=== PATIENT | female | born 1975 | race Caucasian/White ===

== ENCOUNTER → 2018-10-16 | Outpatient (CLI) | payer OTHER ==
[~2018-10-16] MED LIST: ASPI-621 PO; CYCL10TA2 PO; GABA300C18 PO; MULT-208 PO; NAPR-514 PO
--- NOTE | 2018-10-16 15:38 | KCIC ---
Bilateral digital screening mammograms: Reason for examination: Routine screening. Comparison is made to previous studies dated 11/12/2014 and 10/29/2014. Interpretation was made with the benefit of CAD. The skin and nipples show no abnormalities. No abnormal axillary lymph nodes are seen. The breast parenchyma is heterogeneously dense. (Breast density: Category C.) There continue to be small nodular parenchymal densities bilaterally which have not changed. There are no new dominant masses, suspicious calcifications or architectural distortion. Impression: No evidence of malignancy. Recommend routine screening. Your patient's mammogram demonstrates that she has dense breast tissue (breast density category C or D), which could hide abnormalities, and if she has other risk factors for breast cancer that have been identified, she might benefit from supplemental screening tests that may be suggested by you as her ordering physician. Dense breast tissue, in and of itself, is a relatively common condition. Therefore, this information is not provided to cause undue concern, but rather to raise your awareness and to promote discussion with your patient regarding the presence of other risk factors, in addition to dense breast tissue. Your patient's mammography results will be sent to her. BI-RAD Category 2: Benign. "Our facility is accredited by the [employer] Mammography Program." This patient's information has been entered into a reminder system for the patient to be notified with the results of her examination and a target date for the next mammogram. Electronically signed by: Hemalatha Collado MD (10/16/2018 3:35 PM) [id number]
== END | disposition home or self-care (01) ==
LOC: KCIC MAMMO 14:45
PROVIDERS: ATTEND Family Medicine
DX: Z12.31 Encounter for screening mammogram for malignant neoplasm of breast (principal)
CPT/HCPCS: 77067

== ENCOUNTER → 2018-10-22 | Outpatient (CLI) | payer OTHER ==
--- NOTE | 2018-10-26 15:13 | EKG ---
[facility] [address] [place] [address] Test Date: 2018-10-22 Test Time: 13:43:00 Pat Name: SAMANTA CHAVEZ Department: Room: Gender: Manager Fitness: : 1975 Requested By: RADHA DALLAS Order Number: [id number] Reading MD: Pedrito Jones Interpretive Statements Pwas predominantly in normal sinus rhythm with heart rate ranging from 76 bpm to 150 bpm with an average of 112 bpm. Very few premature supraventricular and ventricular ectopic beats noted. No significant arrhythmias were seen. Patient reported symptoms of palpitations and dizziness in her diary that did not correlate with any significant arrhythmias. CONCLUSIONS Holter monitor did not show any significant arrhythmias. Electronically Signed On 10-30-2018 9:44:42 [employer] by Pedrito Jones
== END | disposition home or self-care (01) ==
LOC: EKG 13:08
PROVIDERS: ATTEND Family Medicine
DX: I49.3 Ventricular premature depolarization (principal); R00.2 Palpitations
CPT/HCPCS: 93225; 93226

== ENCOUNTER → 2020-05-12 | Outpatient (CLI) | payer OTHER ==
--- NOTE | 2020-05-12 13:49 | RAD ---
KNEE RIGHT 3V DATE: 05/12/2020 12:00 AM INDICATION: Reason: PAIN,SWELLING / Spl. Instructions: / History: COMPARISON: None. FINDINGS: Bones: There is no evidence of acute fracture or dislocation. Joints: The joint spaces are normal. There is no joint effusion. Miscellaneous: None. IMPRESSION: No acute osseous abnormality. Electronically signed by: Jc Villafana MD (05/12/2020 1:46 PM) [id number]
== END | disposition home or self-care (01) ==
LOC: RAD 09:56
PROVIDERS: ATTEND Family Medicine
DX: M25.461 Effusion, right knee (principal)
CPT/HCPCS: 73562

== ENCOUNTER → 2020-05-20 | Outpatient (CLI) | payer OTHER ==
--- NOTE | 2020-05-20 11:39 | RAD ---
Examination: MRI of the right knee was performed without contrast COMPARISON: None available HISTORY: History of right knee pain TECHNIQUE: Multiplanar multisequence MR imaging of the right knee was performed without contrast. FINDINGS: The anterior cruciate ligament, posterior cruciate ligament appear intact. There is 1.7 cm multiloculated cystic structure identified arising from the proximal portion of the anterior cruciate ligament likely ganglion cyst. The medial meniscus, lateral meniscus appear intact. The medial collateral ligament appears intact. The lateral collateral ligamentous complex including the fibular collateral ligament ,biceps femoris tendon, popliteus tendon appears intact. The medial retinaculum, lateral retinaculum appears intact. There is deep fissuring of cartilage identified in the right lateral femoral compartment and in the medial femoral condyle anteriorly with small subchondral cystic changes. Small knee joint effusion. The extensor mechanism appears intact. Mild degenerative changes identified in the medial, lateral, patellofemoral compartments. IMPRESSION: 1. Grade II chondromalacia patellofemoral compartment and in the anterior aspect of the medial compartment with subchondral cystic lesions likely degenerative changes. 2. Small knee joint effusion. 3. 1.7 cm ganglion cyst arising from the proximal portion of the anterior cruciate ligament. Electronically signed by: Yvan Salazar MD (05/20/2020 11:36 AM) [id number]
== END | disposition home or self-care (01) ==
LOC: MRI 08:44
PROVIDERS: ATTEND Family Medicine
DX: M22.41 Chondromalacia patellae, right knee (principal); M25.461 Effusion, right knee; M67.461 Ganglion, right knee
CPT/HCPCS: 73721

== ENCOUNTER → 2020-09-21 | Outpatient (CLI) | payer OTHER ==
--- NOTE | 2020-09-22 15:44 | RAD ---
DATE: 09/21/2020 3:10 PM EXAM: MAMMO IONA SCREENING BILATERAL HISTORY: Screening COMPARISON: 10/16/2018, 10/29/2014 Bilateral CC and MLO views of the breasts were performed. Bilateral breast tomosynthesis was performed in CC and MLO projections. This study was interpreted with the benefit of Computerized Aided Detection (CAD). FINDINGS: Breast Density: HETERO The breast parenchyma Is heterogeneously dense, which could reduce sensitivity of mammography. Breast parenchyma level C Waxing and waning pattern of nodularity compatible with benign cystic change. No suspicious masses, microcalcifications or architectural distortion is present to suggest malignancy in either breast. The visualized axillae are unremarkable. IMPRESSION: No mammographic evidence of malignancy. BI-RADS CATEGORY: 2 BENIGN FINDING(S) RECOMMENDED FOLLOW-UP: 12M 12 MONTH FOLLOW-UP Annual screening mammography is recommended, unless clinically indicated sooner based on symptoms or change in physical exam. PQRS compliance statement: Patient information was entered into a reminder system with a target due date for the next mammogram. Mammography is a sensitive method for finding small breast cancers, but it does not detect them all and is not a substitute for careful clinical examination. A negative mammogram does not negate a clinically suspicious finding and should not result in delay in biopsying a clinically suspicious abnormality. "Our facility is accredited by the [employer] Mammography Program."
== END ==
LOC: MAMMO 14:55
PROVIDERS: ATTEND Family Medicine
DX: Z12.31 Encounter for screening mammogram for malignant neoplasm of breast (principal)
CPT/HCPCS: 77063; 77067

== ENCOUNTER 2020-09-25 15:34 | Inpatient (IN) | payer OTHER ==
[~2020-09-25] VITALS: Ht 157.5 cm; Wt 75.6 kg
--- NOTE | 2020-09-25 16:29 | PHYS DOC ---
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 She states she still feels this. She states she is had this before but a long time ago. States she was never diagnosed with any diagnosis. She takes no blood thinners. Patient's history is chronic back pain and she is a smoker. Patient denies chest pain, shortness of air, numbness, focal weakness, vision changes, headache, lightheadedness, dizziness, abdominal pain, nausea, vomiting, diarrhea, fever, cough. Review of Systems: Review of Systems: Constitutional: Denies fever or chills. [] Eyes: Denies change in visual acuity. [] HENT: Denies nasal congestion or sore throat. [] Respiratory: Denies cough or shortness of breath. [] Cardiovascular: Denies chest pain or edema. [] GI: Denies abdominal pain, nausea, vomiting, bloody stools or diarrhea. [] : Denies dysuria. [] Musculoskeletal: Denies back pain or joint pain. [] Integument: Denies rash. [] Neurologic: Denies headache, focal weakness. +Bilateral facial cheeks, arms and legs tingling sensory changes. [] Endocrine: Denies polyuria or polydipsia. [] Lymphatic: Denies swollen glands. [] Psychiatric: Denies depression or anxiety. [] Heart Score: Risk Factors: Risk Factors: DM, Current or recent (<one month) smoker, HTN, HLP, family history of CAD, obesity. Risk Scores: Score 0 - 3: 2.5% MACE over next 6 weeks - Discharge Home Score 4 - 6: 20.3% MACE over next 6 weeks - Admit for Clinical Observation Score 7 - 10: 72.7% MACE over next 6 weeks - Early Invasive Strategies Allergies: Allergies: Allergies Coded Allergies Type Severity Reaction Last Updated Verified No Known Drug Allergies 01/29/15 No Physical Exam: PE: Constitutional: Well developed, well nourished, no acute distress, non-toxic appearance. [] HENT: Normocephalic, atraumatic, bilateral external ears normal, oropharynx moist, no oral exudates, nose normal. [] Eyes: PERRLA, EOMI, conjunctiva normal, no discharge. [] Neck: Normal range of motion, no tenderness, supple, no stridor. [] Cardiovascular:Heart rate regular rhythm, no murmur [] Lungs & Thorax: Bilateral breath sounds clear to auscultation [] Abdomen: Bowel sounds normal, soft, no tenderness, no masses, no pulsatile masses. [] Skin: Warm, dry, no erythema, no rash. [] Back: No tenderness, no CVA tenderness. [] Extremities: No tenderness, no cyanosis, no clubbing, ROM intact, no edema. [] Neurologic: Alert and oriented X 3, normal motor function, sensory function tingling in bilateral lower legs, arms and facial cheeks, no focal deficits note d. [] Psychologic: Affect normal, judgement normal, mood normal. [] Current Patient Data: Vital Signs: Vital Signs Date Time Temp Pulse Resp B/P (MAP) Pulse Ox O2 Delivery O2 Flow Rate FiO2 09/25/20 16:13 98.3 110 158/90 (112) 98 98.3 09/25/20 15:45 20 EKG: EK and read by Dr. Henry as sinus tach and no STEMI Radiology/Procedures: Radiology/Procedures: [] Impression: [facility] [address] [place], [place] [id number] IMAGING REPORT Signed PATIENT: SAMANTA CHAVEZ LACCOUNT: [id number] : 1975 LOCATION: ER AGE: 45 SEX: F EXAM STATUS: REG ER ORD. PHYSICIAN: PASHA PUENTES APRN REASON: numbness, tingling PROCEDURE: CT HEAD WO CONTRAST Exam: CT head INDICATION: Numbness and tingling TECHNIQUE: Sequential axial images through the head were obtained without the administration of IV contrast. Comparisons: None FINDINGS: No focal parenchymal lesion or hemorrhage is identified. There is no midline shift or sulcal effacement. No acute vascular territory infarction is identified. Parisi-white distinction is preserved. The ventricular system is within normal limits without compression hydrocephalus. The basal cisterns are well maintained. The visualized portions of the paranasal sinuses and mastoid air cells are well-pneumatized. No acute fractures. IMPRESSION: No acute intracranial abnormality. Exposure: One or more of the following in the visualized dose reduction techniques were utilized for this examination: 1. Automated exposure control 2. Adjustment of the MA and/or KV according to patient size Use of iterative of reconstructive technique Electronically signed by: Damon Quinn MD (09/25/2020 5:41 PM) [facility] DICTATED and SIGNED BY: DAMON QUINN MD DATE: 09/25/201740 Course & Med Decision Making: Course & Med Decision Making Pertinent Labs and Imaging studies reviewed. (See chart for details) See HPI. Patient denies any pain. Speaks in full complete sentences. Alert and oriented x4. Ambulatory with a steady gait. NIH is 1 due to slight sensation changes in her bilateral legs and arms. CT head shows no acute findings. Blood work is unremarkable. Upon reexamination the patient she is still having tingling in the face. She is calm and sitting in bed watching TV talking to her family member. I have spoken to Dr. Lau who states that patient can be admitted to the hospital and neurology, see her in the morning. Patient agrees to stay. Patient is admitted to Dr Lau. [] Uma Disclaimer: Uma Disclaimer: This electronic medical record was generated, in whole or in part, using a voice recognition dictation system. NIHSS Stroke Scale NIH Stroke Scale: NIH Stroke Scale Response (Comments) Value Level of Consciousness: 0 Alert/Responsive 0 LOC Questions: 0 Answers both correctly 0 LOC Commands: 0 Performs both tasks 0 Best Gaze: 0 Normal 0 Visual: 0 No visual loss 0 Facial Palsy: 0 Normal, symmetrical 0 Motor - Left Arm 0 No drift 0 Motor - Right Arm 0 No drift 0 Motor - Left Leg 0 No drift 0 Motor: Right Leg 0 No drift 0 Limb Ataxia: 0 Absent 0 Sensory: 1 Mid to moderate loss 1 Best Language: 0 Normal 0 Dysathria: 0 Normal 0 Extinction and Inattention: 0 Normal 0 Total 1 Departure Departure Impression: Primary Impression: Numbness and tingling Disposition: 01 DC HOME SELF CARE/HOMELESS Admitting Physician: Radha Lau Condition: STABLE Referrals: RADHA LAU MD (PCP) PASHA PUENTES CHANGE CONTROL MANAGER Sep 25, 2020 16:29
[2020-09-25 17:17] LABS: BASO # 0.2 x10^3/uL (0.0-0.2); BASO % 1 % (0-3); EOS # 0.3 x10^3/uL (0.0-0.7); EOS % 2 % (0-3); HEMATOCRIT 39.8 % (36.0-47.0); HEMOGLOBIN 13.4 g/dL (12.0-15.5); LYMPH # 3.1 x10^3/uL (1.0-4.8); LYMPH % 23 % (24-48); MEAN CORPUSCULAR HEMOGLOBIN 31 pg (25-35); MEAN CORPUSCULAR HGB CONC 34 g/dL (31-37); MEAN CORPUSCULAR VOLUME 92 fL (79-100); MONO # 0.8 x10^3/uL (0.0-1.1); MONO % 6 % (0-9); NEUT # 9.3 x10^3/uL (1.8-7.7); NEUT % 68 % (31-73); PLATELET COUNT 397 x10^3/uL (140-400); RED BLOOD COUNT 4.33 x10^6/uL (3.50-5.40); RED CELL DISTRIBUTION WIDTH 13.8 % (11.5-14.5); WHITE BLOOD COUNT 13.6 x10^3/uL (4.0-11.0)
[2020-09-25 17:25] LABS: CALCIUM 9.2 mg/dL (8.5-10.1); CREATININE 0.8 mg/dL (0.6-1.0); GFR 76.9; POTASSIUM 3.5 mmol/L (3.5-5.1)
[2020-09-25 17:26] LABS: PROTHROMBIN TIME PATIENT 13.2 SEC (11.7-14.0)
[2020-09-25 17:31] LABS: ALBUMIN 3.7 g/dL (3.4-5.0); ALBUMIN/GLOBULIN RATIO 1.1 (1.0-1.7); MAGNESIUM 2.3 mg/dL (1.8-2.4); TOTAL BILIRUBIN 0.2 mg/dL (0.2-1.0); TOTAL PROTEIN 7.1 g/dL (6.4-8.2)
--- NOTE | 2020-09-25 17:44 | RAD ---
Exam: CT head INDICATION: Numbness and tingling TECHNIQUE: Sequential axial images through the head were obtained without the administration of IV contrast. Comparisons: None FINDINGS: No focal parenchymal lesion or hemorrhage is identified. There is no midline shift or sulcal effacement. No acute vascular territory infarction is identified. Parisi-white distinction is preserved. The ventricular system is within normal limits without compression hydrocephalus. The basal cisterns are well maintained. The visualized portions of the paranasal sinuses and mastoid air cells are well-pneumatized. No acute fractures. IMPRESSION: No acute intracranial abnormality. Exposure: One or more of the following in the visualized dose reduction techniques were utilized for this examination: 1. Automated exposure control 2. Adjustment of the MA and/or KV according to patient size Use of iterative of reconstructive technique Electronically signed by: Damon Bey MD (09/25/2020 5:41 PM) [facility]ING
[2020-09-25 17:56] LABS: BILIRUBIN,URINE NEGATIVE (NEG); CLARITY,URINE CLEAR; COLOR,URINE YELLOW; NITRITE,URINE NEGATIVE (NEG); PH,URINE 5.5 (<5.0-8.0); PROTEIN,URINE NEGATIVE (NEG-TRACE)
[2020-09-25 18:02] LABS: BARBITURATES NEG (NEG); BENZODIAZEPINES NEG (NEG); CANNABINOIDS NEG (NEG); COCAINE NEG (NEG); METHADONE NEG (NEG); OPIATES NEG (NEG); PHENCYCLIDINE NEG (NEG)
[2020-09-25 18:04] LABS: RBC,URINE 0 /HPF (0-2)
[2020-09-25 18:05] LABS: BACTERIA,URINE MODERATE /HPF (0-FEW)
[2020-09-25 18:07] LABS: AMPHETAMINE/METHAMPHETAMINE NEG (NEG)
[2020-09-25 21:00] VITALS: BP 149/87
--- NOTE | 2020-09-25 22:30 | NUR ---
ADMISSION NOTE Pt admitted to room 517 via ER cart at 2100. Pt is A/Ox4, denies pain. Pt placed on tele monitor, discussed POC. At 2230, admission assessment and history and home med list completed. Pt reports that earlier today, she got dizzy, and started to have a numbness/tingling sensation go throughout her whole body, from top to bottom. Currently pt reports only having numbness/tingling sensation around the mouth, but denies any widespread symptoms or weakness at this time. Pt requests nicotine patch. Pt denies any further needs. Will monitor.
[2020-09-25] MEDS ORDERED: DICL75TA PO (22:39)
[2020-09-25] MEDS ORDERED: FAMO-63 PO (22:39)
[2020-09-25] MEDS ORDERED: ASCO500C PO (22:39)
[2020-09-25] MEDS ORDERED: MULT-735 PO (22:39)
[2020-09-25 23:00] VITALS: BP 134/76
[2020-09-25] MEDS ORDERED: NICOTINE 21MG PATCH. TD PRN (23:00)
[2020-09-26] MEDS ORDERED: FEXO180T81 PO (05:36)
[2020-09-26 07:00] VITALS: BP 123/75
--- NOTE | 2020-09-26 07:40 | PDOC1 ---
H & P. DATE OF SERVICE: DATE: 09/26/20 TIME: 07:37 HPI: Ms Aldrich is a 45 yo female with nicotine dependence, who presented to the ED after sudden onset of parasthesias in b/l cheeks, arms and legs that started as she was working in [employer], just walking down the hallway. She felt somewhat lightheaded and had mild vertigo. She reported feeling well immediately prior to the event. She denies history of migraines. She denies headache at the time. She notes that symptoms resolved within 1 hour. She reports that she has had lightheadedness and episodic vertigo in the past, but not for a while. Labs were remarkable only for mildly elevated WBCs without left shift. CT head was normal. EKG was normal. She was admitted for observation and consult with Neurology this AM. ROS: Constitutional: Denies fever, fatigue, chills HEENT: Denies sore throat, vision changes Cardio: Denies chest pain, dyspnea with exertion, syncope, palpitations, edema Pulmonary: Denies shortness of breath, cough, wheezing GI: Denies nausea, vomiting, diarrhea, constipation : Denies dysuria, frequency, urgency, incontinence Skin: Denies new lesions Neuro: Denies weakness; admits mild paresthesias intermittently in the cheeks b/l PMH: As above FAMILY HX: Mother had a stroke. SOCIAL HX: 1ppd smoker for many years, started smoking at age 10. Denies recreational drug use. Admits drinking about 10 drinks at a time approximately once a week or less. SURGICAL HX: LEEP, R wrist surgery MEDS: Reviewed and reconciled ALLERGIES: Reviewed PE: Alert, oriented, no acute distress EOMI, sclera non-icteric Neck supple, no carotid bruit RRR, no murmur CTAB, no wheezes, crackles or rhonchi No edema, cyanosis. Normal capillary refill. CN II-XII grossly intact, nonfocal Calm, cooperative, mood/affect within normal limits ASSESSMENT & PLAN: Parasthesias, lightheadedness, vertigo, nearly all resolved Nicotine dependence Alcohol misuse Neurology consulted for input Uncertain etiology at this point, could be atypical migraine but no headache at this time. I have low suspicion for TIA given distribution of symptoms Strongly recommended smoking cessation, she has tried multiple options including Chantix. May look into hypnosis. Get lipid panel, TSH Likely dc home later today with outpt follow up Justifications for Admission Other Justification TRUSTY,FELIZ Cheung MD Sep 26, 2020 07:40
[2020-09-26] MEDS ORDERED: FAMOTIDINE 20 MG TABLET. PO PRN (07:45)
[2020-09-26] MEDS ORDERED: DICLOFENAC SODIUM 25 MG TABLET.DR PO SCH (09:00)
[2020-09-26] MEDS ORDERED: CETIRIZINE HCL 10 MG TABLET. PO SCH (09:00)
[2020-09-26] MEDS ORDERED: Nicotine 21MG TD (09:03)
[2020-09-26 11:19] VITALS: BP 129/86
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
--- NOTE | 2020-09-27 14:04 | EKG ---
[facility] [address] [place] [address] Test Date: 2020-09-25 Test Time: 16:28:48 Pat Name: SAMANTA CHAVEZ Department: Room: Gender: F Performance Improvement Manager: : 1975 Requested By: PASHA PUENTES Order Number: [id number] Reading MD: Measurements Intervals [place] Rate: 104 P: 34 NE: 128 QRS: 67 QRSD: 88 T: 24 QT: 352 QTc: 469 Interpretive Statements SINUS TACHYCARDIA OTHERWISE NORMAL ECG RI6.02 No previous ECG available for comparison
== END 2020-09-26 13:00 | disposition home or self-care (01) | DRG 149 ==
LOC: ER 15:34 → 5 NORTH 19:08
PROVIDERS: ADMIT Family Medicine; ATTEND Family Medicine
DX: R42 Dizziness and giddiness (principal); F17.210 Nicotine dependence, cigarettes, uncomplicated; Z82.3 Family history of stroke; I65.1 Occlusion and stenosis of basilar artery; G89.29 Other chronic pain; F17.200 Nicotine dependence, unspecified, uncomplicated
CPT/HCPCS: 36415; 70450; 80053; 80307; 81001; 83690; 83735; 84443; 84484; 85025; 85610; 87086; 93005; G0480; G0378

== ENCOUNTER → 2021-09-22 | Outpatient (CLI) | payer OTHER ==
[~2021-09-22] MED LIST changes: +ASCO500C PO; +CYCL10TA19 PO; -CYCL10TA2 PO; +DICL75TA PO; +FAMO-63 PO; +FEXO180T81 PO; +MULT-735 PO; +Nicotine 21MG TD
--- NOTE | 2021-09-22 08:54 | RAD ---
INDICATION : Routine Screening. COMPARISON: Multiple priors including September 2020 TECHNIQUE: Standard mammogram screening views of the bilateral breasts were obtained with 3D tomosynt hesis. CAD was utilized. FINDINGS: The breasts are heterogenous density. Within the right medial breast centrally approximately 5-6 cm from the nipple there is a partially obscured mass suspected which may be a new finding. There is als o multiple additional partially obscured mass is seen within the left greater than right breast. Some of these appear new or more prominent than on prior exams. On the left cc view this includes both me dially and laterally as well as within the central glandular tissue. These are predominantly within t he anterior aspect of the left breast. IMPRESSION: BI-RADS Category 0: Incomplete. Further imaging evaluation is warranted. There is bilateral partially obscured masses within the breasts with some of these appearing new and some more prominent than yury or. Recommend that the perforation return for diagnostic mammogram and ultrasound to further assess. The patient was placed into the recall system with a suggested recall date for follow up imaging. Mammography is the most sensitive method for finding small breast cancers, but it does not detect the m all and is not a substitute for careful clinical examination. A negative mammogram does not negate a clinically suspicious finding and should not result in delay in biopsying a clinically suspicious abnormality. Electronically signed by: Madhav Correa MD (09/22/2021 8:52 AM) [id number]
== END ==
LOC: MAMMO 09:25
PROVIDERS: ATTEND Family Medicine
DX: Z12.31 Encounter for screening mammogram for malignant neoplasm of breast (principal)
CPT/HCPCS: 77063; 77067

== ENCOUNTER → 2021-10-11 | Outpatient (CLI) | payer OTHER ==
--- NOTE | 2021-10-11 15:40 | RAD ---
EXAMINATION: US BREAST BILAT, MG DIAGNOSTIC BILAT CLINICAL HISTORY: Abnormal mammogram TECHNIQUE: Digital craniocaudal and mediolateral oblique spot compression views and true lateral view s of the bilateral breasts obtained. Targeted bilateral breast ultrasound also performed. COMPARISON: Mammograms dated 09/22/2021, 09/21/2020, and 10/16/2018; bilateral breast ultrasound 015 BREAST COMPOSITION: The breasts are heterogeneously dense, which may obscure small masses. FINDINGS: BILATERAL DIAGNOSTIC MAMMOGRAM: 8 mm asymmetry medial right breast posterior third, best visualized on cc view, corresponding to shanel on of interest on most recent mammogram. Multiple partially circumscribed masses throughout the left breast predominantly in the anterior to middle third. BILATERAL BREAST ULTRASOUND: RIGHT: At 10:00 4 cm from the nipple, 9 x 7 x 5 mm mass, previously 9 x 10 x 6 mm. At 12:00 4 cm from the nipple, 7 x 5 x 3 mm mass, previously 9 x 10 x 7 mm. LEFT: At 12:00 4 cm from the nipple, 1.9 x 2.2 x 0.8 cm cyst. At 1:00 3 cm from the nipple, clustered cysts with the largest cyst measuring up to 12 mm. At 2:00 4 cm from the nipple, 5 x 5 x 7 mm irregu lar mass with partially circumscribed margins, possibly clustered cysts or a complicated cyst with se ptation. At 6:00 3 cm from the nipple, 5 x 4 x 3 mm mass. At 8:00 2.5 cm from the nipple 9 x 9 x 6 mm mass, previously 8 x 7 x 6 mm. At 10:00 2.5 cm from the nipple, 4 x 2 x 3 mm mass, previously 5 x 5 x 3 mm. At 11:00 4 cm from the nipple, 7 x 5 x 4 mm mass versus lymph node. IMPRESSION: 1. Probably benign 7 mm mass left upper outer quadrant 2:00. 2. Probably benign asymmetry medial right breast without visualized sonographic correlate. 3. Probable fibrocystic changes right upper outer quadrant and medial left breast without significan t interval change from prior study. BI-RADS ASSESSMENT: Category 3: Probably Benign RECOMMENDATION: Follow-up bilateral diagnostic mammogram, targeted left breast ultrasound, and possible targeted righ t breast ultrasound if indicated in 3-6 months for further evaluation with attention on the mass at 2 :00 position in the left breast and asymmetry in the medial right breast. PQRS compliance statement - Patient information was entered into a reminder system with a target due date for the next mammogram. "Our facility is accredited by the [employer] Mammography Program." Electronically signed by: Manoj Louis DO (10/11/2021 3:38 PM) [id number]
== END ==
LOC: US 12:14
PROVIDERS: ATTEND Family Medicine
DX: N60.02 Solitary cyst of left breast (principal); R92.2 Inconclusive mammogram
CPT/HCPCS: 77066; 76641-50

== ENCOUNTER → 2021-11-10 | Outpatient (CLI) | payer OTHER ==
[2021-11-10 13:40] LABS: ALBUMIN 3.7 g/dL (3.4-5.0); ALBUMIN/GLOBULIN RATIO 1.1 (1.0-1.7); CALCIUM 8.5 mg/dL (8.5-10.1); CHOLESTEROL/HDL RATIO 3.7; CREATININE 0.8 mg/dL (0.6-1.0); GFR 76.6; TOTAL BILIRUBIN 0.4 mg/dL (0.2-1.0)
== END ==
LOC: SPEC 13:15
PROVIDERS: ATTEND Family Medicine
DX: E78.5 Hyperlipidemia, unspecified (principal)
CPT/HCPCS: 36415; 80053; 80061

== ENCOUNTER → 2022-01-06 | Outpatient (CLI) | payer OTHER ==
--- NOTE | 2022-01-06 16:46 | RAD ---
EXAMINATION: MG DIGITAL BILAT DIAGNOSTIC MAMMO WITH IONA, US BREAST BILAT History: Reason: 6 MONTH FOLLOW UP of bilateral breast masses. Comparison: Right breast bilateral diagnostic mammogram and bilateral breast ultrasound 10/11/2021 S creening mammogram 09/23/2021 and 09/21/2020.. Technique: Bilateral digital diagnostic mammogram views were obtained. CAD was utilized. 3-D tomosyn thesis images were acquired. Findings: Mammogram: Breast Tissue Density C : The breasts are heterogeneously dense, which may obscure small masses. An asymmetry at 12:00 middle depth in the left breast on CC view is less conspicuous. The asymmetry i n the medial right breast middle depth on CC view corresponding to 2:00 on tomosynthesis is unchanged . Multiple other bilateral circumscribed nodules are unchanged. There is no suspicious calcification or architectural distortion. Ultrasound: Right breast: Clustered microcysts or complicated cysts with internal debris or septations measuring 6 mm and 15 mm at 12:00 4 cm from nipple and 9:00 3 cm the nipple, respectively, are unchanged or decreased in size compared to 04/23/2015. These are more anechoic in and simple in appearance. There is an area of dens e tissue at 2:00 4.5 cm from the nipple but no mass or cyst in this area to correspond with mammograp hic findings. Left breast: 12:00 4 cm from the nipple: There is possible new ovoid circumscribed hypoechoic mass with internal s eptation or debris measuring 8 x 6 x 5 mm. 2:00 4 cm the nipple: 7 x 6 x 5 mm lobulated hypoechoic mass is unchanged in size and more anechoic i n appearance compared to 10/11/2021. This is likely a septated cyst or cluster of cysts. 10:00 2.5 cm the nipple: A 3 mm hypoechoic mass with indistinct margins is unchanged from 10/11/2021 but smaller compared to 04/23/2015. Additional clustered microcysts or minimally complicated cyst hoang uring 3 mm and 10 mm at 6:00 and 8:00 are unchanged in size and more anechoic in appearance. A 2 cm s imple cyst at 1:00 is unchanged. Mild ductal ectasia is seen bilaterally, unchanged. Normal left axillary lymph nodes. IMPRESSION: 1. Probably benign hypoechoic masses in the left breast at 2:00 and 12:00, likely complicated cyst or clustered microcysts. 2. Additional areas of fibrocystic change in both breasts are stable from 2015 and can be considered benign. 3. Stable 7 mm asymmetry in the medial right breast on mammogram without sonographic correlation. BI-RADS category 3: Probably benign. Recommendation: Bilateral diagnostic mammogram, left breast ultrasound, and possible right breast ult rasound in 6 months to evaluate the probably benign masses in the left breast at 2:00 and 12:00, and the 7 mm asymmetry in the medial right breast seen on mammogram. The images were reviewed with computer aided detection. Patient information is entered into the reminder system with a target due date for the next screening mammogram. Mammography is the most sensitive method for finding small breast cancers, but it does not detect the m all and is not a substitute for careful clinical examination. A negative mammogram does not negate a clinically suspicious finding and should not result in delay in biopsying a clinically suspicious a bnormality. "Our facility is accredited by the [employer] Mammography Program." Electronically signed by: Shelley Baird MD (01/06/2022 4:43 PM) [id number]
== END ==
LOC: MAMMO 09:49
PROVIDERS: ATTEND Family Medicine
DX: N60.02 Solitary cyst of left breast (principal); N60.42 Mammary duct ectasia of left breast
CPT/HCPCS: 76641; 77066; G0279; 77062

== ENCOUNTER → 2022-02-07 | Outpatient (CLI) | payer OTHER ==
[~2022-02-07] MED LIST changes: +REGADENOSON 0.4 MG/5 ML DISP.SYRIN. IV ONE
--- NOTE | 2022-02-07 17:38 | RAD ---
MR#: [id number] Date of Study: 02/07/2022 Ordering Physician: MANNY TORRES, Referring Physician: CHERELLE JAIME Tech: SANTOSH Mejia, LIZET (R) (N) APPROVED REPORT Test Type: Pharmacological Stress Nurse/Tech: Janie Power R.N. Test Indications: chest pain Cardiac History: smoker Medications: See Electronic Medical Record Medical History: See Electronic Medical Record Resting ECG: SR w/ BBB Resting Heart Rate: 78 bpm Resting Blood Pressure: 119/73mmHg Pretest Chest Pain: no Nurse/Tech Notes S1S2, lungs CTA Consent: The procedure was explained to the patient in lay terms. Informed consent was witnessed. Kvng eout was entered into [employer]. History and Stress Test performed by OLIVA Neri Pharm. Details Pharmacologic stress testing was performed using 0.4mg per 5ml of regadenoson given intravenously ove r 7-10 seconds. Stress Symptoms SOA POST EXERCISE Reason for Termination: Infusion complete Max HR: 120 bpm Max Blood Pressure: 137/75mmHg Blood Pressure response to exercise: Normal blood pressure response during stress. Heart Rate response to exercise: wnl Chest Pain: No. Arrhythmia: No. ST Change: No. INTERPRETATION Stress EKG Conclusion: No evidence of stress induced EKG changes. Imaging Protocol IMAGE PROTOCOL: Rest Tc-99m/stress Tc-99m 1 day Rest: Stress: Viability: Radiopharm.Tc99m [id number] Sestamibi Dose10.3mCi 32.5mCi Img Date 02/07/2022 02/07/2022 Inj-Img Vgqw59qhw. 60min. Rest Admin Site:IV - Left AntecubitalAdministrator:OLIVA Neri Stress Admin Site: IV - Left AntecubitalAdministrator: OLIVA Neri STRESS DATA End Diast. Vol.66.0mlAv. Heart Rate91.0bpm End Syst. Vol.8.0mlCO Index BSA0.0L/min Myocardial Pnzm610.0gEject. Eemtdwau46.0% Stress Rates Pk. Fill Rate4.32EDV/secLVtime Pk. Fill 126.11msec Pk. Empty Rate4.60ESV/secLVtime Pk. Sdaux906.73msec 1/3 Pk. Fill1.80EDV/sec Stress Scores Regional WT0.00Summed WT0.00 Regional WM0.00Summed WM1.00 The rest and stress images show normal perfusion, normal contraction and thickening. LV Perf. Quant 17 Seg. SSS0.00 17 Seg. SRS0.00 17 Seg. SDS0.00 Stress Defect Extent (% LAD)0.00Rest Defect Extent (% LAD)0.00Rev. Defect Extent (% LAD)0.00 Stress Defect Extent (% LCX) 0.00Rest Defect Extent (% LCX)0.00Rev. Defect Extent (% LCX)0.00 Stress Defect Extent (% RCA)0.00Rest Defect Extent (% RCA)0.00Rev. Defect Extent (% RCA)0.00 Stress Defect Extent (% ONOFRE)0.00Rest Defect Extent (% ONOFRE)0.00Rev. Defect Extent (% ONOFRE)0.00 Other Information Quality:Average Risk Assessment: Low Risk Conclusion 1. No evidence of EKG changes with stress testing. 2. Normal perfusion at stress/rest. 3. Low risk study. 4. EF > 60%. Signed by : Osiel Nice, Electronically Approved : 02/07/2022 17:38:19
--- NOTE | 2022-02-08 07:51 | CARD ---
MR#: [id number] Date of Study: 02/07/2022 Ordering Physician: MANNY TORRES, Referring Physician: Earline JAIME: Erik Lockhart [facility] APPROVED REPORT EXAM: Two-dimensional and M-mode echocardiogram with Doppler and color Doppler. Other Information Quality : FairHR: 71bpm Rhythm : NSR INDICATION Chest Pain RISK FACTORS Family History Smoking 2D DIMENSIONS Left Atrium(2D)3.2 (1.6-4.0cm)IVSd0.9 (0.7-1.1cm) Aortic Root(2D)2.8 (2.0-3.7cm)LVDd3.8 (3.9-5.9cm) LVOT Diameter2.0 (1.8-2.4cm)PWd1.0 (0.7-1.1cm) LA Pgfdwy92 (18-58mL)LVDs2.3 (2.5-4.0cm) FS (%) 39.2 %SV44.4 ml LVEF(%)70.4 (>50%) Aortic Valve AoV Peak Alejandro.119.8cm/sAoV VTI26.0cm AO Peak GR.5.7mmHgLVOT Peak Alejandro.89.5cm/s LVOT VTI 19.75cmAO Mean GR.3mmHg LEEANN (VMAX)1.80dw5VIF (VTI)2.30cm2 Mitral Valve MV E Izkmjqzo80.2cm/sMV DECEL TAVO500rn MV A Bkpjbduy65.4cm/sMV BHL62ss E/A Ratio1.4MVA (PHT)4.27cm2 TDI E/Lateral E'10.2E/Medial E'12.7 Pulmonary Valve PV Peak Kamcdrgx668.4cm/sPV Peak Grad.4mmHg Tricuspid Valve TR P. Dzswarjy343mp/sTR Peak Gr.21mmHg Pulmonary Vein S1 Lpufwslw69.2cm/sD2 Sknrhvfy57.1cm/s LEFT VENTRICLE The left ventricle is normal size. There is normal left ventricular wall thickness. The left ventricu lar systolic function is normal and the ejection fraction is within normal range. EF 55% There is nor mal LV segmental wall motion. Tissue Doppler imaging reveals mild left ventricular diastolic dysfunct ion. No left ventricle thrombus noted on this study. There is no ventricular septal defect visualized . There is no left ventricular aneurysm. There is no mass noted in the left ventricle. RIGHT VENTRICLE The right ventricle is normal size. There is normal right ventricular wall thickness. The right ventr icular systolic function is normal. ATRIA The left atrium size is normal. The right atrium size is normal. The interatrial septum is intact wit h no evidence for an atrial septal defect or patent foramen ovale as noted on 2-D or Doppler imaging. AORTIC VALVE The aortic valve is normal in structure and function. Doppler and Color Flow revealed no significant aortic regurgitation. There is no significant aortic valvular stenosis. There is no aortic valvular v egetation. MITRAL VALVE The mitral valve is normal in structure and function. There is no evidence of mitral valve prolapse. There is no mitral valve stenosis. Doppler and Color-flow revealed trace to mild mitral regurgitation . TRICUSPID VALVE The tricuspid valve is normal in structure and function. Doppler and Color Flow revealed trace tricus pid regurgitation. The PA pressure was estimated at 27 mmHg. There is no tricuspid valve prolapse or vegetation. There is no tricuspid valve stenosis. PULMONIC VALVE Doppler and Color Flow revealed no pulmonic valvular regurgitation. There is no pulmonic valvular hubert nosis. GREAT VESSELS The aortic root is normal in size. The ascending aorta is normal in size. The IVC is normal in size a nd collapses >50% with inspiration. PERICARDIAL EFFUSION There is no pleural effusion. There is no evidence of significant pericardial effusion. Critical Notification Critical Value: No <Conclusion> The left ventricular systolic function is normal and the ejection fraction is within normal range. EF 55% There is normal LV segmental wall motion. Signed by : Osiel Nice, Electronically Approved : 02/08/2022 07:51:11
== END ==
LOC: NM 07:59
PROVIDERS: ATTEND Internal Medicine Cardiovascular Disease
DX: I34.0 Nonrheumatic mitral (valve) insufficiency (principal); R07.9 Chest pain, unspecified
CPT/HCPCS: 78452; 93017; 93306; A9500; J2785; C8929